=== PATIENT | female | born 1985 | race Caucasian/White ===

== ENCOUNTER 2018-01-09 19:34 | Observation (INO) | payer BC ==
[~2018-01-09] VITALS: Ht 165.1 cm; Wt 86.2 kg
[2018-01-09 23:02] LABS: CLARITY URINE CLEAR (CLEAR); COLOR URINE YELLOW (YELLOW); KETONES URINE 2+ (NEGATIVE); LEUKOCYTE ESTERASE URINE NEGATIVE (NEGATIVE); NITRITE URINE NEGATIVE (NEGATIVE); OCCULT BLOOD URINE NEGATIVE (NEGATIVE); PROTEIN URINE NEGATIVE (NEGATIVE); SPECIFIC GRAVITY URINE 1.008 (1.005-1.030); UROBILINOGEN URINE 0.2 E.U./dL (0.2-1.0)
[2018-01-09] MEDS ORDERED: OXYC-100 MT (23:43)
[2018-01-09] MEDS ORDERED: ONDA4TAB5 MT (23:43)
== END 2018-01-09 23:50 | disposition home or self-care (01) ==
LOC: L&D 19:34
PROVIDERS: ADMIT Specialist; ATTEND Specialist
DX: O42.912 Preterm premature rupture of membranes, unspecified as to length of time between rupture and onset of labor, second trimester (principal); O62.9 Abnormality of forces of labor, unspecified; Z3A.20 20 weeks gestation of pregnancy
CPT/HCPCS: 76805; 76817; 81003; 87086; 99281; G0378